=== PATIENT | male | born 1975 | race Caucasian/White ===

== ENCOUNTER 2021-03-22 19:13 | Inpatient (IN) | payer BC, SELFPAY ==
[2021-03-23] MEDS ORDERED: HYDROcodone/Acetaminophen 5/325 mg Tablet PO PRN (00:30)
[2021-03-23] MEDS ORDERED: Ondansetron PF 4 MG/2 ML Vial IVP PRN (00:30)
[2021-03-23] MEDS ORDERED: Bisacodyl 5 MG TAB PO PRN (00:30)
[2021-03-23] MEDS ORDERED: HYDROcodone/Acetaminophen 7.5/325 mg Tablet PO PRN (00:30)
[2021-03-23] MEDS ORDERED: Senokot S 8.6-50 MG TAB PO PRN (00:30)
[2021-03-23] MEDS ORDERED: Pharmacy to Dose REMDESIVIR IVPB PRN (00:40)
[2021-03-23] MEDS ORDERED: hydrALAZINE 20 MG/ML VIAL SLOW IVP PRN (00:42)
[2021-03-23] MEDS ORDERED: Azithromycin 500 MG in Sodium Chloride 0.9% 250 ML 250 ML IVPB SCH (00:45)
[2021-03-23] MEDS ORDERED: Dextrose 5% in Water 1,000 ML IV PRN (01:17)
[2021-03-23] MEDS ORDERED: Dextrose 50% Abboject 50 ML SYRINGE SLOW IVP PRN (01:17)
[2021-03-23] MEDS ORDERED: Sodium Chloride 0.9% 1,000 ML IV SCH (01:30)
[2021-03-23] MEDS ORDERED: cefTRIAXone\\ROCEPHIN 2 GM in Sodium Chloride 0.9% 100 ML IVPB SCH (02:00)
[2021-03-23] MEDS: HumaLOG 300 UNITS/3 ML VIAL SC PRN ×4 (05:51→20:58)
[2021-03-23 06:55] LABS: #Lymphocytes 0.6 thou/uL (1.20-3.40); #Monocytes 0.3 thou/uL (0.11-0.59); #Neutrophils 7.4 thou/uL (1.40-6.50); %Lymphocytes 7.6 % (21.0-51.0); %Monocytes 3.6 % (0.0-10.0); %Neutrophils 88.8 % (42.0-75.0); Hemoglobin 16.3 g/dL (14.0-18.0); Mean Corpuscular Volume 90.6 fL (78.0-98.0); Mean Platelet Volume 8.9 fL (7.4-10.4); Platelet Count 128 thou/uL (130-400); RBC Distribution Width 12.3 % (11.5-14.5); Red Blood Cell (RBC) Count 5.64 mill/uL (4.70-6.10); White Blood Cell (WBC) Count 8.4 thou/uL (4.8-10.8)
[2021-03-23 06:56] LABS: ALT (SGPT) 58 U/L (8-55); AST (SGOT) 41 U/L (5-34); Albumin 3.2 g/dL (3.5-5.0); Alkaline Phosphatase 87 U/L (40-110); Anion Gap 17 mmol/L (10-20); BUN (Urea Nitrogen) 16 mg/dL (8.9-20.6); Bilirubin, Total 0.9 mg/dL (0.2-1.2); Calc. Creatinine Clearance 208 mL/min (70-130); Calcium 8.6 mg/dL (7.8-10.44); Carbon Dioxide 20 mmol/L (22-29); Chloride 100 mmol/L (98-107); Globulin 3.9 g/dL (2.4-3.5); Glucose 321 mg/dL (70-105); Potassium 4.6 mmol/L (3.5-5.1); Protein, Total 7.1 g/dL (6.0-8.3); Sodium 132 mmol/L (136-145)
[2021-03-23 07:14] LABS: Hemoglobin A1c 11.6 % (4.0-6.0)
[2021-03-23] MEDS: Benzonatate 100 MG CAP PO SCH ×3 (08:57→21:28)
[2021-03-23] MEDS: Cholecalciferol (Vitamin D3) 400 UNITS TAB PO SCH (08:58)
[2021-03-23] MEDS: Zinc Sulfate 220 MG CAP PO SCH (08:58)
[2021-03-23] MEDS: Ascorbic Acid 500 mg Chewable Tablet PO SCH (08:58)
[2021-03-23] MEDS: guaiFENesin ER 600 MG TAB PO SCH ×2 (08:58→20:57)
[2021-03-23] MEDS: Enoxaparin Sodium 40 MG/0.4 ML SYRINGE SC SCH ×2 (08:58→20:57)
[2021-03-23] MEDS ORDERED: REMDESIVIR 200 MG in Sodium Chloride 0.9% 250 ML 210 ML IV SCH (09:00)
[2021-03-23] MEDS ORDERED: Enoxaparin Sodium 40 MG/0.4 ML SYRINGE SC SCH (09:00)
[2021-03-23] MEDS: Dexamethasone 10 MG/ML VIAL SLOW IVP SCH (09:02)
[2021-03-23] MEDS: Lantus 1000 UNITS/10 ML VIAL SC SCH ×2 (09:18→20:58)
[2021-03-23] MEDS ORDERED: VANCOMYCIN 2 GRAM/400 ML BAG 2 GM in Premix Bag 1 BAG IVPB SCH (10:00)
[2021-03-23] MEDS: Albuterol 200 PUFF (6.7GM INHALER) INH SCH (18:29)
[2021-03-24] MEDS: Albuterol 200 PUFF (6.7GM INHALER) INH SCH ×4 (00:53→18:14)
[2021-03-24] MEDS: HumaLOG 300 UNITS/3 ML VIAL SC PRN ×4 (06:01→21:34)
[2021-03-24] MEDS: guaiFENesin ER 600 MG TAB PO SCH ×2 (08:00→21:34)
[2021-03-24] MEDS: Enoxaparin Sodium 40 MG/0.4 ML SYRINGE SC SCH ×2 (08:00→21:34)
[2021-03-24] MEDS: Ascorbic Acid 500 mg Chewable Tablet PO SCH (08:00)
[2021-03-24] MEDS: Cholecalciferol (Vitamin D3) 400 UNITS TAB PO SCH (08:00)
[2021-03-24] MEDS: metFORMIN 500 MG TAB PO SCH ×2 (08:00→16:33)
[2021-03-24] MEDS: Zinc Sulfate 220 MG CAP PO SCH (08:00)
[2021-03-24] MEDS: REMDESIVIR 100 MG in Sodium Chloride 0.9% 250 ML 230 ML IV SCH (08:01)
[2021-03-24] MEDS: Dexamethasone 10 MG/ML VIAL SLOW IVP SCH (08:01)
[2021-03-24] MEDS: glipiZIDE 5 MG TAB PO SCH ×2 (08:01→16:33)
[2021-03-24] MEDS: Lantus 1000 UNITS/10 ML VIAL SC SCH ×2 (08:01→21:34)
[2021-03-24] MEDS: Benzonatate 100 MG CAP PO SCH ×3 (08:26→21:34)
[2021-03-25] MEDS: Albuterol 200 PUFF (6.7GM INHALER) INH SCH ×4 (00:40→19:42)
[2021-03-25] MEDS: HumaLOG 300 UNITS/3 ML VIAL SC PRN ×2 (05:53→17:16)
[2021-03-25] MEDS: glipiZIDE 5 MG TAB PO SCH ×2 (05:53→17:13)
[2021-03-25 07:56] LABS: Mean Corpuscular Hemoglobin 30.3 pg (27.0-31.0); Mean Corpuscular Volume 91.7 fL (78.0-98.0); Platelet Count 177 thou/uL (130-400); RBC Distribution Width 12.6 % (11.5-14.5); White Blood Cell (WBC) Count 15.1 thou/uL (4.8-10.8)
[2021-03-25 08:04] LABS: ALT (SGPT) 50 U/L (8-55); AST (SGOT) 46 U/L (5-34); Albumin 3.3 g/dL (3.5-5.0); Alkaline Phosphatase 102 U/L (40-110); Anion Gap 16 mmol/L (10-20); BUN (Urea Nitrogen) 16 mg/dL (8.9-20.6); Bilirubin, Total 0.8 mg/dL (0.2-1.2); Calc. Creatinine Clearance 230 mL/min (70-130); Calcium 8.7 mg/dL (7.8-10.44); Carbon Dioxide 23 mmol/L (22-29); Chloride 102 mmol/L (98-107); Globulin 3.8 g/dL (2.4-3.5); Glucose 158 mg/dL (70-105); Protein, Total 7.1 g/dL (6.0-8.3); Sodium 137 mmol/L (136-145)
[2021-03-25] MEDS: Enoxaparin Sodium 40 MG/0.4 ML SYRINGE SC SCH ×2 (08:40→21:42)
[2021-03-25] MEDS: Ascorbic Acid 500 mg Chewable Tablet PO SCH (08:40)
[2021-03-25] MEDS: metFORMIN 500 MG TAB PO SCH ×2 (08:40→17:13)
[2021-03-25] MEDS: guaiFENesin ER 600 MG TAB PO SCH ×2 (08:40→21:42)
[2021-03-25] MEDS: Zinc Sulfate 220 MG CAP PO SCH (08:40)
[2021-03-25] MEDS: Cholecalciferol (Vitamin D3) 400 UNITS TAB PO SCH (08:40)
[2021-03-25 08:45] LABS: #Monocytes 0.5 thou/uL (0.11-0.59); #Neutrophils 13.6 thou/uL (1.40-6.50); %Basophils 0.1 % (0.0-1.0); %Eosinophils 0.1 % (0.0-10.0); %Lymphocytes 6.4 % (21.0-51.0); %Monocytes 3.2 % (0.0-10.0); %Neutrophils 90.2 % (42.0-75.0); Band 16 % (5-11); Lymphocytes 5 % (21-51); MDiff Complete? YES; Neutrophil 78 % (42-75); RBC Morphology Normal; Reactive Lymphocytes 1 % (0-10)
[2021-03-25] MEDS: REMDESIVIR 100 MG in Sodium Chloride 0.9% 250 ML 230 ML IV SCH (10:09)
[2021-03-25] MEDS: Dexamethasone 10 MG/ML VIAL SLOW IVP SCH (10:09)
[2021-03-25] MEDS: Lantus 1000 UNITS/10 ML VIAL SC SCH ×2 (10:10→21:42)
[2021-03-25] MEDS: Benzonatate 100 MG CAP PO SCH ×3 (12:44→21:42)
[2021-03-26] MEDS ORDERED: Pharmacy to Dose BARICITINIB IVPB PRN (00:30)
[2021-03-26] MEDS: Albuterol 200 PUFF (6.7GM INHALER) INH SCH ×4 (01:36→19:32)
[2021-03-26] MEDS: glipiZIDE 5 MG TAB PO SCH ×2 (05:25→15:56)
[2021-03-26] MEDS: Zinc Sulfate 220 MG CAP PO SCH (09:00)
[2021-03-26] MEDS: Cholecalciferol (Vitamin D3) 400 UNITS TAB PO SCH (09:00)
[2021-03-26] MEDS: Ascorbic Acid 500 mg Chewable Tablet PO SCH (09:00)
[2021-03-26] MEDS: metFORMIN 500 MG TAB PO SCH ×3 (09:00→20:55)
[2021-03-26] MEDS: guaiFENesin ER 600 MG TAB PO SCH ×2 (09:00→20:55)
[2021-03-26] MEDS: Dexamethasone 10 MG/ML VIAL SLOW IVP SCH ×2 (09:01→20:57)
[2021-03-26] MEDS: BARICITINIB 2 MG TAB PO SCH (09:07)
[2021-03-26] MEDS: REMDESIVIR 100 MG in Sodium Chloride 0.9% 250 ML 230 ML IV SCH (09:13)
[2021-03-26] MEDS: Lantus 1000 UNITS/10 ML VIAL SC SCH ×2 (09:14→20:55)
[2021-03-26] MEDS: Enoxaparin Sodium 40 MG/0.4 ML SYRINGE SC SCH ×2 (09:32→20:56)
[2021-03-26] MEDS: Benzonatate 100 MG CAP PO SCH ×3 (09:32→20:56)
[2021-03-26] MEDS ORDERED: Iopamidol-370 76% 500 ML 1 ML ONE (12:30)
[2021-03-26] MEDS: HumaLOG 300 UNITS/3 ML VIAL SC PRN ×2 (13:10→15:56)
[2021-03-26] MEDS: guaiFENesin/Codeine 200 mg/20 mg 10 ml Cup PO SCH ×2 (19:32→23:48)
[2021-03-26] MEDS: Acetaminophen 325 MG TAB PO PRN (19:34)
[2021-03-26] MEDS: Melatonin 3 MG TAB PO PRN (20:55)
[2021-03-27] MEDS: Albuterol 200 PUFF (6.7GM INHALER) INH SCH ×4 (00:28→18:01)
[2021-03-27] MEDS: HumaLOG 300 UNITS/3 ML VIAL SC PRN ×4 (05:38→21:03)
[2021-03-27] MEDS: guaiFENesin/Codeine 200 mg/20 mg 10 ml Cup PO SCH ×4 (05:52→18:01)
[2021-03-27] MEDS: Lantus 1000 UNITS/10 ML VIAL SC SCH ×2 (07:34→21:02)
[2021-03-27] MEDS: Cholecalciferol (Vitamin D3) 400 UNITS TAB PO SCH (07:35)
[2021-03-27] MEDS: guaiFENesin ER 600 MG TAB PO SCH ×2 (07:35→20:59)
[2021-03-27] MEDS: Zinc Sulfate 220 MG CAP PO SCH (07:35)
[2021-03-27] MEDS: Ascorbic Acid 500 mg Chewable Tablet PO SCH (07:35)
[2021-03-27] MEDS: metFORMIN 500 MG TAB PO SCH (07:35)
[2021-03-27] MEDS: BARICITINIB 2 MG TAB PO SCH (07:35)
[2021-03-27] MEDS: glipiZIDE 5 MG TAB PO SCH (07:35)
[2021-03-27] MEDS: Enoxaparin Sodium 40 MG/0.4 ML SYRINGE SC SCH ×2 (07:36→21:00)
[2021-03-27] MEDS: Guaifenesin DM 100-10/5 ML UDCUP PO PRN ×2 (07:36→21:00)
[2021-03-27] MEDS: Benzonatate 100 MG CAP PO SCH ×3 (07:36→20:53)
[2021-03-27] MEDS: Dexamethasone 10 MG/ML VIAL SLOW IVP SCH ×2 (07:36→21:00)
[2021-03-27 08:11] LABS: ALT (SGPT) 48 U/L (8-55); AST (SGOT) 43 U/L (5-34); Albumin 3.2 g/dL (3.5-5.0); Alkaline Phosphatase 151 U/L (40-110); Anion Gap 17 mmol/L (10-20); BUN (Urea Nitrogen) 19 mg/dL (8.9-20.6); Bilirubin, Total 1.6 mg/dL (0.2-1.2); Calc. Creatinine Clearance 237 mL/min (70-130); Calcium 8.1 mg/dL (7.8-10.44); Carbon Dioxide 21 mmol/L (22-29); Chloride 102 mmol/L (98-107); Globulin 3.5 g/dL (2.4-3.5); Glucose 276 mg/dL (70-105); Potassium 4.7 mmol/L (3.5-5.1); Protein, Total 6.7 g/dL (6.0-8.3); Sodium 135 mmol/L (136-145)
[2021-03-27 08:17] LABS: #Basophils 0.1 thou/uL (0.0-0.2); #Lymphocytes 0.6 thou/uL (1.20-3.40); #Monocytes 0.7 thou/uL (0.11-0.59); #Neutrophils 16.4 thou/uL (1.40-6.50); %Basophils 0.8 % (0.0-1.0); %Eosinophils 0.1 % (0.0-10.0); %Lymphocytes 3.2 % (21.0-51.0); %Monocytes 3.8 % (0.0-10.0); %Neutrophils 92.1 % (42.0-75.0); Hemoglobin 16.2 g/dL (14.0-18.0); MDiff Complete? YES; Mean Corpuscular HGB CONC 31.2 g/dL (32.0-36.0); Mean Corpuscular Hemoglobin 28.1 pg (27.0-31.0); Mean Corpuscular Volume 90.2 fL (78.0-98.0); Platelet Count 70 thou/uL (130-400); Platelet Morphology Comment Appears Decreased; RBC Distribution Width 12.8 % (11.5-14.5); Red Blood Cell (RBC) Count 5.76 mill/uL (4.70-6.10); White Blood Cell (WBC) Count 17.8 thou/uL (4.8-10.8)
[2021-03-27] MEDS: REMDESIVIR 100 MG in Sodium Chloride 0.9% 250 ML 230 ML IV SCH (10:16)
[2021-03-27] MEDS ORDERED: Sodium Chloride 0.65% Nasal 44 ML BOT EA NARE PRN (12:55)
[2021-03-27] MEDS: Melatonin 3 MG TAB PO PRN (20:59)
[2021-03-28] MEDS: guaiFENesin/Codeine 200 mg/20 mg 10 ml Cup PO SCH ×4 (00:06→18:14)
[2021-03-28] MEDS: Albuterol 200 PUFF (6.7GM INHALER) INH SCH ×4 (00:06→21:00)
[2021-03-28] MEDS ORDERED: traZODone HCl 50 MG TAB PO SCH (00:45)
[2021-03-28 04:27] LABS: #Lymphocytes 0.6 thou/uL (1.20-3.40); #Monocytes 0.7 thou/uL (0.11-0.59); #Neutrophils 16.6 thou/uL (1.40-6.50); %Basophils 0.1 % (0.0-1.0); %Eosinophils 0.2 % (0.0-10.0); %Lymphocytes 3.6 % (21.0-51.0); %Neutrophils 92.3 % (42.0-75.0); Hemoglobin 15.1 g/dL (14.0-18.0); Mean Corpuscular HGB CONC 32.6 g/dL (32.0-36.0); Mean Corpuscular Hemoglobin 29.9 pg (27.0-31.0); Mean Corpuscular Volume 91.5 fL (78.0-98.0); Mean Platelet Volume 9.8 fL (7.4-10.4); Platelet Count 91 thou/uL (130-400); RBC Distribution Width 12.8 % (11.5-14.5); Red Blood Cell (RBC) Count 5.07 mill/uL (4.70-6.10)
[2021-03-28 04:46] LABS: Anion Gap 16 mmol/L (10-20); BUN (Urea Nitrogen) 19 mg/dL (8.9-20.6); Calc. Creatinine Clearance 227 mL/min (70-130); Calcium 8.2 mg/dL (7.8-10.44); Carbon Dioxide 23 mmol/L (22-29); Chloride 102 mmol/L (98-107); Glucose 244 mg/dL (70-105); Potassium 4.8 mmol/L (3.5-5.1); Sodium 136 mmol/L (136-145)
[2021-03-28] MEDS: HumaLOG 300 UNITS/3 ML VIAL SC PRN (05:49)
[2021-03-28] MEDS: Dexamethasone 10 MG/ML VIAL SLOW IVP SCH ×2 (11:58→21:00)
[2021-03-28] MEDS: BARICITINIB 2 MG TAB PO SCH (11:58)
[2021-03-28] MEDS: Enoxaparin Sodium 40 MG/0.4 ML SYRINGE SC SCH ×2 (11:59→21:00)
[2021-03-28] MEDS: Zinc Sulfate 220 MG CAP PO SCH (11:59)
[2021-03-28] MEDS: Ascorbic Acid 500 mg Chewable Tablet PO SCH (11:59)
[2021-03-28] MEDS: Cholecalciferol (Vitamin D3) 400 UNITS TAB PO SCH (11:59)
[2021-03-28] MEDS: Benzonatate 100 MG CAP PO SCH ×3 (11:59→21:00)
[2021-03-28] MEDS: Lantus 1000 UNITS/10 ML VIAL SC SCH ×2 (12:00→21:00)
[2021-03-28] MEDS: guaiFENesin ER 600 MG TAB PO SCH ×2 (12:00→21:00)
[2021-03-29] MEDS: guaiFENesin/Codeine 200 mg/20 mg 10 ml Cup PO SCH ×4 (02:32→17:35)
[2021-03-29] MEDS: Albuterol 200 PUFF (6.7GM INHALER) INH SCH ×4 (02:59→17:35)
[2021-03-29 04:50] LABS: #Basophils 0.1 thou/uL (0.0-0.2); #Lymphocytes 0.5 thou/uL (1.20-3.40); #Monocytes 0.7 thou/uL (0.11-0.59); #Neutrophils 16.3 thou/uL (1.40-6.50); %Basophils 0.6 % (0.0-1.0); %Eosinophils 0.2 % (0.0-10.0); %Lymphocytes 2.8 % (21.0-51.0); %Monocytes 4.1 % (0.0-10.0); %Neutrophils 92.3 % (42.0-75.0); Mean Corpuscular HGB CONC 31.9 g/dL (32.0-36.0); Mean Corpuscular Hemoglobin 29.1 pg (27.0-31.0); Mean Corpuscular Volume 91.1 fL (78.0-98.0); Mean Platelet Volume 10.2 fL (7.4-10.4); Platelet Count 114 thou/uL (130-400); RBC Distribution Width 12.7 % (11.5-14.5); Red Blood Cell (RBC) Count 5.83 mill/uL (4.70-6.10); White Blood Cell (WBC) Count 17.7 thou/uL (4.8-10.8)
[2021-03-29 04:51] LABS: Anion Gap 18 mmol/L (10-20); BUN (Urea Nitrogen) 18 mg/dL (8.9-20.6); Calc. Creatinine Clearance 201 mL/min (70-130); Calcium 8.8 mg/dL (7.8-10.44); Carbon Dioxide 24 mmol/L (22-29); Chloride 96 mmol/L (98-107); Glucose 294 mg/dL (70-105); Sodium 133 mmol/L (136-145)
[2021-03-29] MEDS: HumaLOG 300 UNITS/3 ML VIAL SC PRN ×4 (05:36→21:06)
[2021-03-29] MEDS: Zinc Sulfate 220 MG CAP PO SCH (09:02)
[2021-03-29] MEDS: Enoxaparin Sodium 40 MG/0.4 ML SYRINGE SC SCH ×2 (09:02→20:27)
[2021-03-29] MEDS: BARICITINIB 2 MG TAB PO SCH (09:02)
[2021-03-29] MEDS: Ascorbic Acid 500 mg Chewable Tablet PO SCH (09:03)
[2021-03-29] MEDS: Cholecalciferol (Vitamin D3) 400 UNITS TAB PO SCH (09:03)
[2021-03-29] MEDS: Lantus 1000 UNITS/10 ML VIAL SC SCH ×2 (09:04→20:27)
[2021-03-29] MEDS: guaiFENesin ER 600 MG TAB PO SCH ×2 (09:04→20:26)
[2021-03-29] MEDS: Dexamethasone 10 MG/ML VIAL SLOW IVP SCH ×2 (09:04→20:26)
[2021-03-29] MEDS: Benzonatate 100 MG CAP PO SCH ×3 (09:06→20:27)
[2021-03-29] MEDS: Melatonin 3 MG TAB PO PRN (20:26)
[2021-03-30] MEDS: Albuterol 200 PUFF (6.7GM INHALER) INH SCH ×4 (02:16→18:47)
[2021-03-30] MEDS: guaiFENesin/Codeine 200 mg/20 mg 10 ml Cup PO SCH ×4 (02:17→17:38)
[2021-03-30 04:24] LABS: #Lymphocytes 0.6 thou/uL (1.20-3.40); #Monocytes 0.5 thou/uL (0.11-0.59); #Neutrophils 13.9 thou/uL (1.40-6.50); %Eosinophils 0.2 % (0.0-10.0); %Lymphocytes 4.1 % (21.0-51.0); %Monocytes 3.4 % (0.0-10.0); %Neutrophils 92.3 % (42.0-75.0); Hemoglobin 15.3 g/dL (14.0-18.0); Mean Corpuscular HGB CONC 32.9 g/dL (32.0-36.0); Mean Corpuscular Hemoglobin 29.6 pg (27.0-31.0); Mean Platelet Volume 9.4 fL (7.4-10.4); Platelet Count 117 thou/uL (130-400); RBC Distribution Width 12.4 % (11.5-14.5); Red Blood Cell (RBC) Count 5.16 mill/uL (4.70-6.10); White Blood Cell (WBC) Count 15.1 thou/uL (4.8-10.8)
[2021-03-30 05:43] LABS: Anion Gap 16 mmol/L (10-20); BUN (Urea Nitrogen) 19 mg/dL (8.9-20.6); Calc. Creatinine Clearance 224 mL/min (70-130); Calcium 8.1 mg/dL (7.8-10.44); Carbon Dioxide 24 mmol/L (22-29); Chloride 99 mmol/L (98-107); Glucose 264 mg/dL (70-105); Potassium 4.7 mmol/L (3.5-5.1); Sodium 134 mmol/L (136-145)
[2021-03-30] MEDS: HumaLOG 300 UNITS/3 ML VIAL SC PRN ×4 (06:16→21:04)
[2021-03-30] MEDS: Zinc Sulfate 220 MG CAP PO SCH (07:54)
[2021-03-30] MEDS: Cholecalciferol (Vitamin D3) 400 UNITS TAB PO SCH (07:54)
[2021-03-30] MEDS: BARICITINIB 2 MG TAB PO SCH (07:54)
[2021-03-30] MEDS: Ascorbic Acid 500 mg Chewable Tablet PO SCH (07:55)
[2021-03-30] MEDS: guaiFENesin ER 600 MG TAB PO SCH ×2 (07:55→20:49)
[2021-03-30] MEDS: Dexamethasone 10 MG/ML VIAL SLOW IVP SCH ×2 (07:55→20:49)
[2021-03-30] MEDS: Lantus 1000 UNITS/10 ML VIAL SC SCH ×2 (07:56→20:50)
[2021-03-30] MEDS: Enoxaparin Sodium 40 MG/0.4 ML SYRINGE SC SCH ×2 (07:56→20:49)
[2021-03-30] MEDS: Benzonatate 100 MG CAP PO SCH ×3 (07:57→20:50)
[2021-03-30] MEDS: Melatonin 3 MG TAB PO PRN (20:49)
[2021-03-31] MEDS: Albuterol 200 PUFF (6.7GM INHALER) INH SCH ×4 (01:51→18:41)
[2021-03-31] MEDS: guaiFENesin/Codeine 200 mg/20 mg 10 ml Cup PO SCH ×4 (01:51→17:17)
[2021-03-31] MEDS: HumaLOG 300 UNITS/3 ML VIAL SC PRN ×4 (06:36→20:53)
[2021-03-31] MEDS: Benzonatate 100 MG CAP PO SCH ×3 (08:13→20:52)
[2021-03-31] MEDS: Ascorbic Acid 500 mg Chewable Tablet PO SCH (08:13)
[2021-03-31] MEDS: guaiFENesin ER 600 MG TAB PO SCH ×2 (08:13→20:53)
[2021-03-31] MEDS: BARICITINIB 2 MG TAB PO SCH (08:13)
[2021-03-31] MEDS: Enoxaparin Sodium 40 MG/0.4 ML SYRINGE SC SCH ×2 (08:14→20:52)
[2021-03-31] MEDS: Zinc Sulfate 220 MG CAP PO SCH (08:14)
[2021-03-31] MEDS: Cholecalciferol (Vitamin D3) 400 UNITS TAB PO SCH (08:14)
[2021-03-31] MEDS: Dexamethasone 10 MG/ML VIAL SLOW IVP SCH ×2 (08:14→20:52)
[2021-03-31] MEDS: Lantus 1000 UNITS/10 ML VIAL SC SCH ×2 (08:16→20:53)
[2021-03-31 09:39] LABS: #Eosinphils 0.1 thou/uL (0.0-0.7); #Lymphocytes 0.7 thou/uL (1.20-3.40); #Monocytes 0.7 thou/uL (0.11-0.59); #Neutrophils 17.3 thou/uL (1.40-6.50); %Eosinophils 0.4 % (0.0-10.0); %Lymphocytes 3.7 % (21.0-51.0); %Monocytes 3.9 % (0.0-10.0); Hemoglobin 15.8 g/dL (14.0-18.0); Mean Corpuscular HGB CONC 32.2 g/dL (32.0-36.0); Mean Corpuscular Hemoglobin 28.9 pg (27.0-31.0); Mean Platelet Volume 9.3 fL (7.4-10.4); Platelet Count 186 thou/uL (130-400); RBC Distribution Width 12.4 % (11.5-14.5); Red Blood Cell (RBC) Count 5.48 mill/uL (4.70-6.10); White Blood Cell (WBC) Count 18.8 thou/uL (4.8-10.8)
[2021-03-31 14:02] VITALS: BMI 40.3
[2021-04-01] MEDS: Albuterol 200 PUFF (6.7GM INHALER) INH SCH ×5 (01:09→23:25)
[2021-04-01 04:06] LABS: #Lymphocytes 0.6 thou/uL (1.20-3.40); #Monocytes 0.7 thou/uL (0.11-0.59); #Neutrophils 15.5 thou/uL (1.40-6.50); %Basophils 0.3 % (0.0-1.0); %Eosinophils 0.2 % (0.0-10.0); %Lymphocytes 3.5 % (21.0-51.0); %Monocytes 4.2 % (0.0-10.0); %Neutrophils 91.9 % (42.0-75.0); Hemoglobin 15.1 g/dL (14.0-18.0); Mean Corpuscular HGB CONC 33.3 g/dL (32.0-36.0); Mean Corpuscular Volume 90.3 fL (78.0-98.0); Mean Platelet Volume 9.4 fL (7.4-10.4); Platelet Count 176 thou/uL (130-400); RBC Distribution Width 12.2 % (11.5-14.5); Red Blood Cell (RBC) Count 5.03 mill/uL (4.70-6.10); White Blood Cell (WBC) Count 16.9 thou/uL (4.8-10.8)
[2021-04-01 04:17] LABS: Anion Gap 13 mmol/L (10-20); BUN (Urea Nitrogen) 22 mg/dL (8.9-20.6); Carbon Dioxide 27 mmol/L (22-29); Chloride 97 mmol/L (98-107); Potassium 4.6 mmol/L (3.5-5.1); Sodium 132 mmol/L (136-145)
[2021-04-01 04:18] LABS: CRP (Inflammatory) 2.71 mg/dL (= or < 0.5); Calc. Creatinine Clearance 199 mL/min (70-130); Calcium 8.1 mg/dL (7.8-10.44); Glucose 276 mg/dL (70-105)
[2021-04-01] MEDS: guaiFENesin/Codeine 200 mg/20 mg 10 ml Cup PO SCH ×4 (04:47→23:41)
[2021-04-01] MEDS: HumaLOG 300 UNITS/3 ML VIAL SC PRN ×2 (06:18→20:11)
[2021-04-01] MEDS: BARICITINIB 2 MG TAB PO SCH (08:15)
[2021-04-01] MEDS: Dexamethasone 10 MG/ML VIAL SLOW IVP SCH ×2 (08:15→20:10)
[2021-04-01] MEDS: Benzonatate 100 MG CAP PO SCH ×3 (08:15→20:10)
[2021-04-01] MEDS: Cholecalciferol (Vitamin D3) 400 UNITS TAB PO SCH (08:15)
[2021-04-01] MEDS: Zinc Sulfate 220 MG CAP PO SCH (08:15)
[2021-04-01] MEDS: Ascorbic Acid 500 mg Chewable Tablet PO SCH (08:16)
[2021-04-01] MEDS: Lantus 1000 UNITS/10 ML VIAL SC SCH ×2 (08:16→20:11)
[2021-04-01] MEDS: Enoxaparin Sodium 40 MG/0.4 ML SYRINGE SC SCH ×2 (08:16→20:10)
[2021-04-01] MEDS: guaiFENesin ER 600 MG TAB PO SCH ×2 (08:16→20:10)
[2021-04-01] MEDS: Melatonin 3 MG TAB PO PRN (20:10)
[2021-04-02] MEDS: Albuterol 200 PUFF (6.7GM INHALER) INH SCH ×3 (07:04→20:08)
[2021-04-02] MEDS: guaiFENesin ER 600 MG TAB PO SCH ×2 (08:33→20:39)
[2021-04-02] MEDS: Ascorbic Acid 500 mg Chewable Tablet PO SCH (08:33)
[2021-04-02] MEDS: Cholecalciferol (Vitamin D3) 400 UNITS TAB PO SCH (08:33)
[2021-04-02] MEDS: BARICITINIB 2 MG TAB PO SCH (08:33)
[2021-04-02] MEDS: Zinc Sulfate 220 MG CAP PO SCH (08:33)
[2021-04-02] MEDS: Benzonatate 100 MG CAP PO SCH ×3 (08:33→20:39)
[2021-04-02] MEDS: Dexamethasone 10 MG/ML VIAL SLOW IVP SCH ×2 (08:34→20:39)
[2021-04-02] MEDS: Lantus 1000 UNITS/10 ML VIAL SC SCH ×2 (08:34→20:39)
[2021-04-02] MEDS: Enoxaparin Sodium 40 MG/0.4 ML SYRINGE SC SCH ×2 (08:34→20:39)
[2021-04-02] MEDS: guaiFENesin/Codeine 200 mg/20 mg 10 ml Cup PO SCH ×3 (08:39→18:07)
[2021-04-02 11:32] LABS: Anion Gap 15 mmol/L (10-20); BUN (Urea Nitrogen) 18 mg/dL (8.9-20.6); Calc. Creatinine Clearance 209 mL/min (70-130); Calcium 8.1 mg/dL (7.8-10.44); Carbon Dioxide 26 mmol/L (22-29); Chloride 99 mmol/L (98-107); Sodium 135 mmol/L (136-145)
[2021-04-02 12:09] LABS: %Lymphocytes 3.8 % (21.0-51.0); %Monocytes 4.3 % (0.0-10.0); %Neutrophils 91.4 % (42.0-75.0); Hemoglobin 14.6 g/dL (14.0-18.0); Mean Corpuscular HGB CONC 32.6 g/dL (32.0-36.0); Mean Corpuscular Hemoglobin 29.6 pg (27.0-31.0); Mean Corpuscular Volume 90.5 fL (78.0-98.0); Mean Platelet Volume 9.4 fL (7.4-10.4); Platelet Count 198 thou/uL (130-400); RBC Distribution Width 12.3 % (11.5-14.5); Red Blood Cell (RBC) Count 4.95 mill/uL (4.70-6.10); White Blood Cell (WBC) Count 16.9 thou/uL (4.8-10.8)
[2021-04-02 12:10] LABS: #Eosinphils 0.1 thou/uL (0.0-0.7); #Lymphocytes 0.6 thou/uL (1.20-3.40); #Monocytes 0.7 thou/uL (0.11-0.59); #Neutrophils 15.4 thou/uL (1.40-6.50); %Eosinophils 0.5 % (0.0-10.0)
[2021-04-02] MEDS: HumaLOG 300 UNITS/3 ML VIAL SC PRN ×2 (16:41→20:40)
[2021-04-02] MEDS: Melatonin 3 MG TAB PO PRN (20:39)
[2021-04-03] MEDS: guaiFENesin/Codeine 200 mg/20 mg 10 ml Cup PO SCH ×5 (00:26→22:32)
[2021-04-03] MEDS: Albuterol 200 PUFF (6.7GM INHALER) INH SCH ×4 (03:09→19:36)
[2021-04-03] MEDS: HumaLOG 300 UNITS/3 ML VIAL SC PRN ×2 (06:49→21:12)
[2021-04-03] MEDS: Cholecalciferol (Vitamin D3) 400 UNITS TAB PO SCH (09:36)
[2021-04-03] MEDS: Enoxaparin Sodium 40 MG/0.4 ML SYRINGE SC SCH ×2 (09:36→21:08)
[2021-04-03] MEDS: Benzonatate 100 MG CAP PO SCH ×3 (09:36→21:09)
[2021-04-03] MEDS: Dexamethasone 10 MG/ML VIAL SLOW IVP SCH ×2 (09:36→21:09)
[2021-04-03] MEDS: Ascorbic Acid 500 mg Chewable Tablet PO SCH (09:36)
[2021-04-03] MEDS: BARICITINIB 2 MG TAB PO SCH (09:36)
[2021-04-03] MEDS: Zinc Sulfate 220 MG CAP PO SCH (09:36)
[2021-04-03] MEDS: guaiFENesin ER 600 MG TAB PO SCH ×2 (09:37→21:09)
[2021-04-03] MEDS: Lantus 1000 UNITS/10 ML VIAL SC SCH ×2 (09:38→21:09)
[2021-04-03] MEDS: Melatonin 3 MG TAB PO PRN (22:32)
[2021-04-04] MEDS: Albuterol 200 PUFF (6.7GM INHALER) INH SCH ×3 (01:04→12:03)
[2021-04-04 04:13] LABS: #Eosinphils 0.1 thou/uL (0.0-0.7); #Lymphocytes 0.7 thou/uL (1.20-3.40); #Monocytes 1.1 thou/uL (0.11-0.59); #Neutrophils 17.8 thou/uL (1.40-6.50); %Eosinophils 0.4 % (0.0-10.0); %Lymphocytes 3.4 % (21.0-51.0); %Monocytes 5.5 % (0.0-10.0); %Neutrophils 90.7 % (42.0-75.0); Hemoglobin 15.4 g/dL (14.0-18.0); Mean Corpuscular Hemoglobin 32.5 pg (27.0-31.0); Mean Corpuscular Volume 90.4 fL (78.0-98.0); Mean Platelet Volume 8.8 fL (7.4-10.4); Platelet Count 172 thou/uL (130-400); RBC Distribution Width 12.3 % (11.5-14.5); Red Blood Cell (RBC) Count 4.74 mill/uL (4.70-6.10); White Blood Cell (WBC) Count 19.6 thou/uL (4.8-10.8)
[2021-04-04 04:25] LABS: Anion Gap 12 mmol/L (10-20); BUN (Urea Nitrogen) 17 mg/dL (8.9-20.6); Calc. Creatinine Clearance 253 mL/min (70-130); Calcium 8.1 mg/dL (7.8-10.44); Carbon Dioxide 25 mmol/L (22-29); Chloride 100 mmol/L (98-107); Glucose 199 mg/dL (70-105); Potassium 4.4 mmol/L (3.5-5.1); Sodium 133 mmol/L (136-145)
[2021-04-04] MEDS: guaiFENesin/Codeine 200 mg/20 mg 10 ml Cup PO SCH ×3 (05:41→18:10)
[2021-04-04] MEDS: Lantus 1000 UNITS/10 ML VIAL SC SCH ×2 (09:34→21:44)
[2021-04-04] MEDS: Dexamethasone 10 MG/ML VIAL SLOW IVP SCH ×2 (09:34→21:46)
[2021-04-04] MEDS: Lidocaine 5% Patch TD SCH (09:34)
[2021-04-04] MEDS: Enoxaparin Sodium 40 MG/0.4 ML SYRINGE SC SCH ×2 (09:34→21:46)
[2021-04-04] MEDS: Benzonatate 100 MG CAP PO SCH ×3 (09:35→21:47)
[2021-04-04] MEDS: Cholecalciferol (Vitamin D3) 400 UNITS TAB PO SCH (09:35)
[2021-04-04] MEDS: BARICITINIB 2 MG TAB PO SCH (09:35)
[2021-04-04] MEDS: guaiFENesin ER 600 MG TAB PO SCH ×2 (09:35→21:47)
[2021-04-04] MEDS: Acetaminophen 325 MG TAB PO PRN (09:35)
[2021-04-04] MEDS: Zinc Sulfate 220 MG CAP PO SCH (09:35)
[2021-04-04] MEDS: Ascorbic Acid 500 mg Chewable Tablet PO SCH (09:35)
[2021-04-04] MEDS ORDERED: NPH, Human Insulin Isophane 300 UNIT/3 ML VIAL SC SCH (10:45)
[2021-04-04 11:24] LABS: Glucose 234 mg/dL (70-105)
[2021-04-04] MEDS: HumaLOG 300 UNITS/3 ML VIAL SC PRN ×2 (11:53→21:45)
[2021-04-04] MEDS: Melatonin 3 MG TAB PO PRN (21:46)
[2021-04-04] MEDS: Transdermal Patch Removal TOP SCH (21:47)
[2021-04-05] MEDS: guaiFENesin/Codeine 200 mg/20 mg 10 ml Cup PO SCH ×5 (00:50→23:54)
[2021-04-05] MEDS: Albuterol 200 PUFF (6.7GM INHALER) INH SCH ×6 (01:42→23:39)
[2021-04-05] MEDS: BARICITINIB 2 MG TAB PO SCH (08:50)
[2021-04-05] MEDS: guaiFENesin ER 600 MG TAB PO SCH ×2 (08:51→21:27)
[2021-04-05] MEDS: Cholecalciferol (Vitamin D3) 400 UNITS TAB PO SCH (08:51)
[2021-04-05] MEDS: Benzonatate 100 MG CAP PO SCH ×3 (08:51→21:27)
[2021-04-05] MEDS: Zinc Sulfate 220 MG CAP PO SCH (08:51)
[2021-04-05] MEDS: Ascorbic Acid 500 mg Chewable Tablet PO SCH (08:51)
[2021-04-05] MEDS: Enoxaparin Sodium 40 MG/0.4 ML SYRINGE SC SCH ×2 (08:52→21:26)
[2021-04-05] MEDS: Dexamethasone 10 MG/ML VIAL SLOW IVP SCH ×2 (08:56→21:27)
[2021-04-05] MEDS ORDERED: Morphine 2 MG/ML VIAL SLOW IVP SCH (09:00)
[2021-04-05] MEDS ORDERED: Morphine 2 MG/ML VIAL ONE (09:00)
[2021-04-05] MEDS: Lantus 1000 UNITS/10 ML VIAL SC SCH ×2 (09:09→21:32)
[2021-04-05] MEDS: Lidocaine 5% Patch TD SCH (09:18)
[2021-04-05] MEDS ORDERED: Furosemide 40 MG/4 ML VIAL SLOW IVP SCH (10:15)
[2021-04-05] MEDS: Apixaban 5 MG TAB PO SCH ×2 (10:22→21:27)
[2021-04-05] MEDS: Transdermal Patch Removal TOP SCH (21:30)
[2021-04-05] MEDS: HumaLOG 300 UNITS/3 ML VIAL SC PRN (21:33)
[2021-04-06] MEDS: Guaifenesin DM 100-10/5 ML UDCUP PO PRN (03:26)
[2021-04-06] MEDS: guaiFENesin/Codeine 200 mg/20 mg 10 ml Cup PO SCH ×3 (05:45→18:39)
[2021-04-06] MEDS: HumaLOG 300 UNITS/3 ML VIAL SC PRN ×2 (05:46→21:04)
[2021-04-06] MEDS: Apixaban 5 MG TAB PO SCH ×2 (07:56→20:59)
[2021-04-06] MEDS: Zinc Sulfate 220 MG CAP PO SCH (07:56)
[2021-04-06] MEDS: BARICITINIB 2 MG TAB PO SCH (07:56)
[2021-04-06] MEDS: Enoxaparin Sodium 40 MG/0.4 ML SYRINGE SC SCH (07:56)
[2021-04-06] MEDS: Benzonatate 100 MG CAP PO SCH ×3 (07:56→20:58)
[2021-04-06] MEDS: Cholecalciferol (Vitamin D3) 400 UNITS TAB PO SCH (07:56)
[2021-04-06] MEDS: Ascorbic Acid 500 mg Chewable Tablet PO SCH (07:56)
[2021-04-06] MEDS: Dexamethasone 10 MG/ML VIAL SLOW IVP SCH ×2 (07:57→21:01)
[2021-04-06] MEDS: Lantus 1000 UNITS/10 ML VIAL SC SCH ×2 (07:57→21:03)
[2021-04-06] MEDS: Lidocaine 5% Patch TD SCH (07:57)
[2021-04-06] MEDS: guaiFENesin ER 600 MG TAB PO SCH ×2 (07:57→20:59)
[2021-04-06] MEDS: Albuterol 200 PUFF (6.7GM INHALER) INH SCH ×4 (09:45→23:55)
[2021-04-06] MEDS: Morphine 2 MG/ML VIAL SLOW IVP PRN (11:03)
[2021-04-06 11:59] LABS: Band 6 % (5-11); Lymphocytes 1 % (21-51); MDiff Complete? YES; Mean Corpuscular HGB CONC 30.7 g/dL (32.0-36.0); Mean Corpuscular Volume 91.2 fL (78.0-98.0); Mean Platelet Volume 9.3 fL (7.4-10.4); Monocytes 6 % (0-10); Neutrophil 87 % (42-75); Platelet Count 226 thou/uL (130-400); Platelet Morphology Comment Appears Adequate; RBC Distribution Width 12.6 % (11.5-14.5); RBC Morphology Normal; Red Blood Cell (RBC) Count 5.34 mill/uL (4.70-6.10); White Blood Cell (WBC) Count 20.8 thou/uL (4.8-10.8)
[2021-04-06 12:12] LABS: ALT (SGPT) 116 U/L (8-55); AST (SGOT) 44 U/L (5-34); Albumin 2.9 g/dL (3.5-5.0); Alkaline Phosphatase 117 U/L (40-110); Anion Gap 17 mmol/L (10-20); BUN (Urea Nitrogen) 24 mg/dL (8.9-20.6); Bilirubin, Total 1.4 mg/dL (0.2-1.2); CRP (Inflammatory) 21.55 mg/dL (= or < 0.5); Calc. Creatinine Clearance 197 mL/min (70-130); Calcium 8.1 mg/dL (7.8-10.44); Carbon Dioxide 24 mmol/L (22-29); Chloride 97 mmol/L (98-107); Globulin 3.4 g/dL (2.4-3.5); Glucose 334 mg/dL (70-105); Potassium 4.6 mmol/L (3.5-5.1); Protein, Total 6.3 g/dL (6.0-8.3); Sodium 133 mmol/L (136-145)
[2021-04-06 13:40] LABS: Troponin I Less than 0.010 ng/mL (< 0.028)
[2021-04-06] MEDS: Transdermal Patch Removal TOP SCH (20:59)
[2021-04-06] MEDS: Melatonin 3 MG TAB PO PRN (21:07)
[2021-04-07] MEDS: Cefepime 1 GM in Sodium Chloride 0.9% 100 ML IVPB SCH ×2 (00:01→13:07)
[2021-04-07] MEDS: guaiFENesin/Codeine 200 mg/20 mg 10 ml Cup PO SCH ×4 (00:09→18:43)
[2021-04-07] MEDS: HumaLOG 300 UNITS/3 ML VIAL SC PRN (06:14)
[2021-04-07] MEDS: Zinc Sulfate 220 MG CAP PO SCH (07:24)
[2021-04-07] MEDS: Apixaban 5 MG TAB PO SCH ×2 (07:24→20:16)
[2021-04-07] MEDS: Lantus 1000 UNITS/10 ML VIAL SC SCH ×2 (07:24→20:38)
[2021-04-07] MEDS: Ascorbic Acid 500 mg Chewable Tablet PO SCH (07:24)
[2021-04-07] MEDS: guaiFENesin ER 600 MG TAB PO SCH ×2 (07:24→20:17)
[2021-04-07] MEDS: Cholecalciferol (Vitamin D3) 400 UNITS TAB PO SCH (07:24)
[2021-04-07] MEDS: BARICITINIB 2 MG TAB PO SCH (07:24)
[2021-04-07] MEDS: Benzonatate 100 MG CAP PO SCH ×3 (07:24→20:16)
[2021-04-07] MEDS: Albuterol 200 PUFF (6.7GM INHALER) INH SCH ×4 (09:47→23:50)
[2021-04-07] MEDS: Dexamethasone 10 MG/ML VIAL SLOW IVP SCH (10:43)
[2021-04-07] MEDS: Lidocaine 5% Patch TD SCH (10:44)
[2021-04-07 11:11] LABS: Mean Corpuscular HGB CONC 32.6 g/dL (32.0-36.0); Mean Corpuscular Hemoglobin 30.4 pg (27.0-31.0); Mean Corpuscular Volume 93.2 fL (78.0-98.0); Mean Platelet Volume 9.5 fL (7.4-10.4); Platelet Count 144 thou/uL (130-400); RBC Distribution Width 12.4 % (11.5-14.5); Red Blood Cell (RBC) Count 5.26 mill/uL (4.70-6.10); White Blood Cell (WBC) Count 16.8 thou/uL (4.8-10.8)
[2021-04-07 11:51] LABS: Band 12 % (5-11); Eosinophils 4 % (0-10); Lymphocytes 6 % (21-51); MDiff Complete? YES; Monocytes 9 % (0-10); Neutrophil 69 % (42-75); Platelet Morphology Comment Appears Adequate
[2021-04-07 20:03] LABS: Albumin 2.8 g/dL (3.5-5.0)
[2021-04-07 20:04] LABS: Chloride 98 mmol/L (98-107); Sodium 134 mmol/L (136-145)
[2021-04-07 20:05] LABS: Glucose 132 mg/dL (70-105)
[2021-04-07 20:06] LABS: Globulin 3.4 g/dL (2.4-3.5); Protein, Total 6.2 g/dL (6.0-8.3)
[2021-04-07 20:07] LABS: Anion Gap 15 mmol/L (10-20); Bilirubin, Total 1.2 mg/dL (0.2-1.2); Carbon Dioxide 25 mmol/L (22-29)
[2021-04-07 20:08] LABS: Alkaline Phosphatase 114 U/L (40-110); CRP (Inflammatory) 16.51 mg/dL (= or < 0.5)
[2021-04-07 20:09] LABS: BUN (Urea Nitrogen) 19 mg/dL (8.9-20.6); Calc. Creatinine Clearance 235 mL/min (70-130)
[2021-04-07 20:10] LABS: AST (SGOT) 44 U/L (5-34)
[2021-04-07 20:11] LABS: ALT (SGPT) 97 U/L (8-55)
[2021-04-07] MEDS: Famotidine 20 MG TAB PO SCH (20:16)
[2021-04-07] MEDS: Nystatin 100,000 Units/mL UDCUP SSW SCH (20:18)
[2021-04-07] MEDS: Transdermal Patch Removal TOP SCH (20:19)
[2021-04-07] MEDS: Calcium Carbonate 500 MG ChewTAB PO PRN (20:23)
[2021-04-08] MEDS: Cefepime 1 GM in Sodium Chloride 0.9% 100 ML IVPB SCH ×2 (00:04→13:45)
[2021-04-08] MEDS: guaiFENesin/Codeine 200 mg/20 mg 10 ml Cup PO SCH ×4 (00:04→18:49)
[2021-04-08 03:58] LABS: #Eosinphils 0.1 thou/uL (0.0-0.7); #Monocytes 1.5 thou/uL (0.11-0.59); #Neutrophils 15.9 thou/uL (1.40-6.50); %Basophils 0.2 % (0.0-1.0); %Eosinophils 0.5 % (0.0-10.0); %Lymphocytes 5.2 % (21.0-51.0); %Monocytes 8.1 % (0.0-10.0); Hemoglobin 15.3 g/dL (14.0-18.0); Mean Corpuscular HGB CONC 32.2 g/dL (32.0-36.0); Mean Corpuscular Hemoglobin 29.3 pg (27.0-31.0); Mean Platelet Volume 8.7 fL (7.4-10.4); Platelet Count 175 thou/uL (130-400); RBC Distribution Width 12.5 % (11.5-14.5); Red Blood Cell (RBC) Count 5.21 mill/uL (4.70-6.10); White Blood Cell (WBC) Count 18.5 thou/uL (4.8-10.8)
[2021-04-08 04:31] LABS: AST (SGOT) 46 U/L (5-34); Albumin 2.7 g/dL (3.5-5.0); Anion Gap 16 mmol/L (10-20); BUN (Urea Nitrogen) 16 mg/dL (8.9-20.6); Bilirubin, Total 1.6 mg/dL (0.2-1.2); CRP (Inflammatory) 18.41 mg/dL (= or < 0.5); Calc. Creatinine Clearance 264 mL/min (70-130); Calcium 7.9 mg/dL (7.8-10.44); Carbon Dioxide 25 mmol/L (22-29); Chloride 99 mmol/L (98-107); Globulin 3.4 g/dL (2.4-3.5); Protein, Total 6.1 g/dL (6.0-8.3); Sodium 136 mmol/L (136-145)
[2021-04-08 04:43] LABS: Glucose 52 mg/dL (70-105)
[2021-04-08 04:46] LABS: ALT (SGPT) 94 U/L (8-55); Alkaline Phosphatase 110 U/L (40-110)
[2021-04-08] MEDS: Albuterol 200 PUFF (6.7GM INHALER) INH SCH ×3 (06:30→20:33)
[2021-04-08] MEDS: Dexamethasone 10 MG/ML VIAL SLOW IVP SCH (09:07)
[2021-04-08] MEDS: Nystatin 100,000 Units/mL UDCUP SSW SCH ×3 (09:07→17:34)
[2021-04-08] MEDS: Lidocaine 5% Patch TD SCH (09:07)
[2021-04-08] MEDS: Famotidine 20 MG TAB PO SCH ×2 (09:08→20:32)
[2021-04-08] MEDS: Ascorbic Acid 500 mg Chewable Tablet PO SCH (09:08)
[2021-04-08] MEDS: guaiFENesin ER 600 MG TAB PO SCH ×2 (09:08→20:32)
[2021-04-08] MEDS: Apixaban 5 MG TAB PO SCH ×2 (09:08→20:32)
[2021-04-08] MEDS: Cholecalciferol (Vitamin D3) 400 UNITS TAB PO SCH (09:08)
[2021-04-08] MEDS: BARICITINIB 2 MG TAB PO SCH (09:08)
[2021-04-08] MEDS: Benzonatate 100 MG CAP PO SCH ×3 (09:08→20:31)
[2021-04-08] MEDS: Zinc Sulfate 220 MG CAP PO SCH (09:08)
[2021-04-08] MEDS: Lantus 1000 UNITS/10 ML VIAL SC SCH ×2 (09:09→20:43)
[2021-04-08] MEDS ORDERED: Lantus 1000 UNITS/10 ML VIAL SC SCH (09:15)
[2021-04-08] MEDS ORDERED: Piperacillin/Tazobactam 3.375 GM in Sodium Chloride 0.9% 100 ML IVPB SCH (13:00)
[2021-04-08] MEDS: VANCOMYCIN 1.75 GM/350 ML BAG 1.75 GM in Premix Bag 1 BAG IVPB SCH ×2 (13:45→21:23)
[2021-04-08] MEDS ORDERED: Nystatin 500,000 UNITS/5 ML UDCUP SSW SCH (17:15)
[2021-04-08] MEDS: Piperacillin/Tazobactam 3.375 GM in Sodium Chloride 0.9% 100 ML IVPB SCH (17:22)
[2021-04-08] MEDS: HumaLOG 300 UNITS/3 ML VIAL SC PRN (18:03)
[2021-04-08] MEDS: Calcium Carbonate 500 MG ChewTAB PO PRN (20:31)
[2021-04-08] MEDS: Nystatin 500,000 UNITS/5 ML UDCUP SSW SCH (20:32)
[2021-04-08] MEDS: Melatonin 3 MG TAB PO PRN (20:32)
[2021-04-08] MEDS: Transdermal Patch Removal TOP SCH (20:33)
[2021-04-09] MEDS: guaiFENesin/Codeine 200 mg/20 mg 10 ml Cup PO SCH ×3 (02:09→15:35)
[2021-04-09] MEDS: Albuterol 200 PUFF (6.7GM INHALER) INH SCH ×4 (02:09→18:37)
[2021-04-09] MEDS: Cefepime 1 GM in Sodium Chloride 0.9% 100 ML IVPB SCH (02:09)
[2021-04-09] MEDS: Piperacillin/Tazobactam 3.375 GM in Sodium Chloride 0.9% 100 ML IVPB SCH ×2 (02:50→09:17)
[2021-04-09 04:32] LABS: ALT (SGPT) 83 U/L (8-55); AST (SGOT) 29 U/L (5-34); Albumin 2.6 g/dL (3.5-5.0); Alkaline Phosphatase 118 U/L (40-110); Anion Gap 13 mmol/L (10-20); BUN (Urea Nitrogen) 14 mg/dL (8.9-20.6); Bilirubin, Total 1.4 mg/dL (0.2-1.2); Calc. Creatinine Clearance 255 mL/min (70-130); Calcium 7.9 mg/dL (7.8-10.44); Carbon Dioxide 27 mmol/L (22-29); Chloride 101 mmol/L (98-107); Globulin 3.4 g/dL (2.4-3.5); Glucose 155 mg/dL (70-105); Sodium 137 mmol/L (136-145)
[2021-04-09 04:33] LABS: Hemoglobin 14.7 g/dL (14.0-18.0); Mean Corpuscular HGB CONC 32.1 g/dL (32.0-36.0); Mean Corpuscular Hemoglobin 29.3 pg (27.0-31.0); Mean Corpuscular Volume 91.4 fL (78.0-98.0); Mean Platelet Volume 9.1 fL (7.4-10.4); Platelet Count 146 thou/uL (130-400); RBC Distribution Width 12.4 % (11.5-14.5); Red Blood Cell (RBC) Count 5.01 mill/uL (4.70-6.10)
[2021-04-09 05:56] LABS: MDiff Complete? YES
[2021-04-09 05:57] LABS: Band 12 % (5-11); Lymphocytes 8 % (21-51); Monocytes 7 % (0-10); Neutrophil 73 % (42-75)
[2021-04-09] MEDS: VANCOMYCIN 1.75 GM/350 ML BAG 1.75 GM in Premix Bag 1 BAG IVPB SCH (06:28)
[2021-04-09] MEDS: Nystatin 500,000 UNITS/5 ML UDCUP SSW SCH ×2 (07:32→15:34)
[2021-04-09] MEDS: Dexamethasone 10 MG/ML VIAL SLOW IVP SCH (07:32)
[2021-04-09] MEDS: Famotidine 20 MG TAB PO SCH (07:33)
[2021-04-09] MEDS: guaiFENesin ER 600 MG TAB PO SCH (07:33)
[2021-04-09] MEDS: Ascorbic Acid 500 mg Chewable Tablet PO SCH (07:33)
[2021-04-09] MEDS: Benzonatate 100 MG CAP PO SCH ×2 (07:33→15:35)
[2021-04-09] MEDS: Cholecalciferol (Vitamin D3) 400 UNITS TAB PO SCH (07:34)
[2021-04-09] MEDS: Apixaban 5 MG TAB PO SCH (07:34)
[2021-04-09] MEDS: Zinc Sulfate 220 MG CAP PO SCH (07:34)
[2021-04-09] MEDS: Lantus 1000 UNITS/10 ML VIAL SC SCH (07:36)
[2021-04-09] MEDS: Lidocaine 5% Patch TD SCH (07:52)
[2021-04-09] MEDS: Morphine 2 MG/ML VIAL SLOW IVP PRN (09:14)
[2021-04-09 11:51] LABS: Actual Bicarbonate (HCO3a) 23.3 mEq/L (22-28); Base Excess (BEa) 0.8 mEq/L (-2.0 to +3.0); CO2 Tension 31.7 mmHg (35.0-45.0); Calcium, Ionized (arterial) 1.12 mmol/L (1.12-1.30); Hemoglobin (Hb) 15.3 g/dL (14.0-18.0); Potassium - ABG Lab 4.03 mmol/L (3.70-5.30); pH, Arterial 7.48 (7.35-7.45)
[2021-04-09 12:02] LABS: O2 Tension (PaO2), arterial 49.9 mmHg (80.0-100.0)
[2021-04-09 12:03] LABS: Puncture Site RRA
[2021-04-09 12:05] LABS: ALV-art Gradient 623.475 mmHg (0-20)
[2021-04-09 13:15] LABS: Bacteria/HPF None Seen HPF (None Seen); Bilirubin Negative (Negative); Blood, Urine 2+ (Negative); Clarity Clear (Clear); Glucose, Urine (Dipstick) Normal (Negative); Ketone, Urine 20 mg/dL (Negative); Leukocyte Negative Leu/uL (Negative); Nitrite Negative (Negative); Protein, Urine (Dipstick) 50 mg/dL (Neg-Trace); RBC/HPF 21-50 HPF (0-3); Specific Gravity, Urine 1.038 (1.002-1.036); Squamous Epithelial 0-3 HPF (0-3); Urobilinogen Greater than 12 mg/dL (Less than 2); WBC/HPF 0-3 HPF (0-3)
[2021-04-09 13:19] LABS: Urine Culture Reflex No No
[2021-04-09] MEDS ORDERED: Propofol 1,000 MG/100 ML VIAL IV ONE (13:28)
[2021-04-09 13:54] LABS: Vancomycin, Trough 7.8 ug/mL
[2021-04-09] MEDS ORDERED: Vecuronium Bromide 20 MG VIAL IV PRN (14:07)
[2021-04-09] MEDS ORDERED: Ventilator Sedation Protocol 1 EACH FS ONE (14:07)
[2021-04-09 14:14] VITALS: BP 161/115
[2021-04-09] MEDS ORDERED: fentaNYL Citrate/PF 2,000 MCG in Sodium Chloride 0.9% 60 ML IV SCH (14:15)
[2021-04-09] MEDS ORDERED: Morphine 2 MG/ML VIAL SLOW IVP PRN (14:15)
[2021-04-09] MEDS ORDERED: Fentanyl BOLUS 250 ML IVPB PRN (14:15)
[2021-04-09] MEDS ORDERED: Propofol BOLUS 1,000 MG/100 ML VIAL IV PRN (14:15)
[2021-04-09] MEDS ORDERED: Fentanyl CADD 100 ML IV SCH (14:15)
[2021-04-09] MEDS ORDERED: Propofol 1,000 MG/100 ML VIAL IV PRN (14:15)
[2021-04-09] MEDS ORDERED: Lorazepam 2 MG/ML VIAL SLOW IVP PRN (14:15)
[2021-04-09] MEDS ORDERED: Fentanyl CADD 100 ML ONE (14:25)
[2021-04-09] MEDS ORDERED: VANCOMYCIN 2 GRAM/400 ML BAG 2 GM in Premix Bag 1 BAG IVPB SCH ×2 (15:00→22:00)
[2021-04-09] MEDS: Vecuronium 10 MG VIAL ONE ×2 (15:28→16:06)
[2021-04-09 15:40] LABS: Actual Bicarbonate (HCO3a) 23.5 mEq/L (22-28); Base Excess (BEa) -7.2 mEq/L (-2.0 to +3.0); Calcium, Ionized (arterial) 1.17 mmol/L (1.12-1.30); Carboxyhemoglobin (COHb) 0.9 gm% (0.0-3.0); Hemoglobin (Hb) 16.4 g/dL (14.0-18.0); O2 Tension (PaO2), arterial 65.7 mmHg (80.0-100.0)
[2021-04-09 15:56] LABS: CO2 Tension 70.1 mmHg (35.0-45.0); pH, Arterial 7.14 (7.35-7.45)
[2021-04-09 15:57] LABS: ALV-art Gradient 559.675 mmHg (0-20); Puncture Site RRA
[2021-04-09] MEDS ORDERED: Vecuronium 10 MG VIAL ONE (17:18)
[2021-04-09] MEDS ORDERED: Atropine Sulfate 1 mg/10 ml Syringe ONE (17:30)
[2021-04-09] MEDS ORDERED: EPINEPHrine 1 MG/10 ML Abboject SYRINGE ONE (17:30)
[2021-04-09] MEDS ORDERED: Sodium Bicarb 50 MEQ/50 ML Abboject 8.4% SYRINGE ONE ×3 (17:30→18:09)
[2021-04-09 17:52] LABS: Actual Bicarbonate (HCO3a) 21.2 mEq/L (22-28); Base Excess (BEa) -11.2 mEq/L (-2.0 to +3.0); Calcium, Ionized (arterial) 1.14 mmol/L (1.12-1.30); Carboxyhemoglobin (COHb) 0.9 gm% (0.0-3.0); Potassium - ABG Lab 6.75 mmol/L (3.70-5.30)
[2021-04-09 17:55] LABS: pH, Arterial 7.05 (7.35-7.45)
[2021-04-09 17:56] LABS: CO2 Tension 78.4 mmHg (35.0-45.0); O2 Tension (PaO2), arterial 56.1 mmHg (80.0-100.0); Puncture Site LBA
[2021-04-09] MEDS ORDERED: EPINEPHrine 4 MG in Dextrose 5% in Water 250 ML IV SCH (18:00)
[2021-04-09 18:12] LABS: Actual Bicarbonate (HCO3a) 28.6 mEq/L (22-28); Base Excess (BEa) 0.4 mEq/L (-2.0 to +3.0); Carboxyhemoglobin (COHb) 0.8 gm% (0.0-3.0); Hemoglobin (Hb) 14.3 g/dL (14.0-18.0); Potassium - ABG Lab 4.15 mmol/L (3.70-5.30); pH, Arterial 7.28 (7.35-7.45)
[2021-04-09 18:13] LABS: CO2 Tension 62.1 mmHg (35.0-45.0); O2 Tension (PaO2), arterial 50.5 mmHg (80.0-100.0)
[2021-04-09 18:14] VITALS: TEMP 98.9
[2021-04-09 18:14] LABS: ALV-art Gradient 584.875 mmHg (0-20); Puncture Site Arterial Line
[2021-04-09] MEDS ORDERED: Sodium Bicarbonate 150 MEQ in Dextrose 5% in Water 1,000 ML IV SCH (18:15)
[2021-04-09 19:53] LABS: Hemoglobin 14.2 g/dL (14.0-18.0); Mean Corpuscular HGB CONC 31.7 g/dL (32.0-36.0); Mean Corpuscular Volume 94.6 fL (78.0-98.0); Mean Platelet Volume 9.2 fL (7.4-10.4); Platelet Count 177 thou/uL (130-400); RBC Distribution Width 12.5 % (11.5-14.5); Red Blood Cell (RBC) Count 4.73 mill/uL (4.70-6.10); White Blood Cell (WBC) Count 35.3 thou/uL (4.8-10.8)
[2021-04-09 20:20] LABS: Band 21 % (5-11); Lymphocytes 9 % (21-51); MDiff Complete? YES; Monocytes 8 % (0-10); Neutrophil 60 % (42-75); Reactive Lymphocytes 2 % (0-10)
[2021-04-09 20:21] LABS: Anion Gap 32 mmol/L (10-20); BUN (Urea Nitrogen) 25 mg/dL (8.9-20.6); Calc. Creatinine Clearance 130 mL/min (70-130); Calcium 7.3 mg/dL (7.8-10.44); Carbon Dioxide 25 mmol/L (22-29); Chloride 96 mmol/L (98-107); Glucose 282 mg/dL (70-105); Potassium 4.8 mmol/L (3.5-5.1); Sodium 148 mmol/L (136-145); Troponin I 0.478 ng/mL (< 0.028)
== END 2021-04-09 19:53 | disposition expired | DRG 871 ==
LOC: T4-A 19:13 → IMCU/EMU 03-26 17:37 → CCU 04-09 13:21
PROVIDERS: ADMIT Student in an Organized Health Care Education/Training Program; ATTEND Hospitalist
PROC: 8E0ZXY6 Isolation (ICD-10-PCS; principal; 2021-03-22)
PROC: 3E0333Z Introduction of Anti-inflammatory into Peripheral Vein, Percutaneous Approach (ICD-10-PCS; 2021-03-23)
PROC: XW033E5 Introduction of Remdesivir Anti-infective into Peripheral Vein, Percutaneous Approach, New Technology Group 5 (ICD-10-PCS; 2021-03-23)
PROC: XW0DXM6 Introduction of Baricitinib into Mouth and Pharynx, External Approach, New Technology Group 6 (ICD-10-PCS; 2021-03-26)
PROC: 0BH17EZ Insertion of Endotracheal Airway into Trachea, Via Natural or Artificial Opening (ICD-10-PCS; 2021-04-09)
PROC: 5A1935Z Respiratory Ventilation, Less than 24 Consecutive Hours (ICD-10-PCS; 2021-04-09)
PROC: 0D9670Z Drainage of Stomach with Drainage Device, Via Natural or Artificial Opening (ICD-10-PCS; 2021-04-09)
PROC: 5A12012 Performance of Cardiac Output, Single, Manual (ICD-10-PCS; 2021-04-09)
PROC: 3E033XZ Introduction of Vasopressor into Peripheral Vein, Percutaneous Approach (ICD-10-PCS; 2021-04-09)
DX: A41.9 Sepsis, unspecified organism (principal); J96.01 Acute respiratory failure with hypoxia; U07.1 COVID-19; J12.82 Pneumonia due to coronavirus disease 2019; J96.02 Acute respiratory failure with hypercapnia; J93.12 Secondary spontaneous pneumothorax; B37.0 Candidal stomatitis; Z68.41 Body mass index [BMI] 40.0-44.9, adult; J98.2 Interstitial emphysema; R65.20 Severe sepsis without septic shock; G47.33 Obstructive sleep apnea (adult) (pediatric); I10 Essential (primary) hypertension; E66.01 Morbid (severe) obesity due to excess calories; E11.65 Type 2 diabetes mellitus with hyperglycemia; E11.649 Type 2 diabetes mellitus with hypoglycemia without coma; R00.0 Tachycardia, unspecified; I46.9 Cardiac arrest, cause unspecified; Z91.19 Patient's noncompliance with other medical treatment and regimen
CPT/HCPCS: 36415; 36416; 36600; 70491; 71045; 71250; 71260; 80048; 80053; 80202; 81001; 82805; 83036; 83605; 83880; 84145; 84484; 85025; 85379; 86140; 87040; 93005; 93010; 94002; J0171; J0461; J0692; J0696; J1100; J1650; J1815; J1940; J2270; J2543; J2704; J3010; J3370; J3490; J7050; Q9967